=== PATIENT | male | born 1970 | race Caucasian/White ===

== ENCOUNTER 2024-09-03 15:16 | Inpatient (IN) | payer BC ==
[2024-09-03 15:48] LABS: %Basophils 0.9 % (0.0-1.0); %Eosinophils 3.6 % (0.0-10.0); %Lymphocytes 27.9 % (21.0-51.0); %Monocytes 8.4 % (0.0-10.0); %Neutrophils 58.9 % (42.0-75.0); Hematocrit 50.8 % (42.0-52.0); Hemoglobin 18.1 g/dL (14.0-18.0); Mean Corpuscular HGB CONC 35.6 g/dL (32.0-36.0); Mean Corpuscular Hemoglobin 30.1 pg (27.0-31.0); Mean Corpuscular Volume 84.5 fL (78.0-98.0); Mean Platelet Volume 9.6 fL (7.4-10.4); Platelet Count 241 10x3/uL (130-400); RBC Distribution Width 12.6 % (11.5-14.5); Red Blood Cell (RBC) Count 6.01 mill/uL (4.70-6.10)
[2024-09-03 15:59] LABS: ALT (SGPT) 28 U/L (8-55); AST (SGOT) 24 U/L (5-34); Albumin 3.8 g/dL (3.5-5.0); Alkaline Phosphatase 106 U/L (40-110); Anion Gap 14 mmol/L (10-20); BUN (Urea Nitrogen) 12 mg/dL (8.4-25.7); Bilirubin, Total 0.4 mg/dL (0.2-1.2); Calc. Creatinine Clearance 0 mL/min (70-130); Calcium 9.1 mg/dL (7.8-10.44); Carbon Dioxide 25 mmol/L (22-29); Chloride 104 mmol/L (98-107); Estimated GFR 92; Globulin 3.3 g/dL (2.4-3.5); Glucose 95 mg/dL (70-105); Lipase 25 U/L (8-78); Potassium 3.7 mmol/L (3.5-5.1); Protein, Total 7.1 g/dL (6.0-8.3); Sodium 139 mmol/L (136-145)
[2024-09-03 16:11] LABS: Troponin I 0.548 ng/mL (< 0.028)
[2024-09-03] MEDS ORDERED: Aspirin Chewable 81 MG TAB ONE (16:11)
[2024-09-03] MEDS ORDERED: Enoxaparin 80 MG (0.8 mL) SYRINGE ONE (16:33)
[2024-09-03] MEDS ORDERED: Acetaminophen 325 MG TAB PO PRN (17:04)
[2024-09-03] MEDS ORDERED: Senokot S 8.6-50 MG TAB PO PRN (17:04)
[2024-09-03] MEDS ORDERED: Ondansetron ODT 4 MG TAB PO PRN (17:04)
[2024-09-03 17:44] VITALS: BMI 22.5
[2024-09-03 19:00] LABS: Troponin I 0.666 ng/mL (< 0.028)
[2024-09-03] MEDS: Famotidine 20 MG TAB PO SCH (21:06)
[2024-09-03 21:32] LABS: Troponin I 0.923 ng/mL (< 0.028)
[2024-09-04] MEDS: Enoxaparin 80 MG (0.8 mL) SYRINGE SC SCH (04:16)
[2024-09-04 05:15] LABS: #Basophils 0.07 10x3/uL (0.0-0.2); %Basophils 0.7 % (0.0-1.0); %Eosinophils 4.4 % (0.0-10.0); %Lymphocytes 29.5 % (21.0-51.0); %Monocytes 7.6 % (0.0-10.0); %Neutrophils 57.5 % (42.0-75.0); Hematocrit 47.4 % (42.0-52.0); Mean Corpuscular HGB CONC 35.9 g/dL (32.0-36.0); Mean Corpuscular Hemoglobin 30.1 pg (27.0-31.0); Mean Platelet Volume 10.2 fL (7.4-10.4); Platelet Count 212 10x3/uL (130-400); RBC Distribution Width 12.8 % (11.5-14.5); Red Blood Cell (RBC) Count 5.64 mill/uL (4.70-6.10)
[2024-09-04 05:48] LABS: Anion Gap 16 mmol/L (10-20); BUN (Urea Nitrogen) 13 mg/dL (8.4-25.7); Calc. Creatinine Clearance 111 mL/min (70-130); Calcium 8.6 mg/dL (7.8-10.44); Carbon Dioxide 21 mmol/L (22-29); Chloride 108 mmol/L (98-107); Estimated GFR 102; Glucose 90 mg/dL (70-105); Sodium 141 mmol/L (136-145)
[2024-09-04 06:26] LABS: Magnesium 1.9 mg/dL (1.6-2.6)
[2024-09-04] MEDS ORDERED: Communication Order-Pharmacy FS SCH (08:00)
[2024-09-04] MEDS ORDERED: Verapamil 5 MG/2 ML VIAL ONE (13:31)
[2024-09-04] MEDS ORDERED: Heparin 10,000 UNITS/ 10 ML VIAL ONE (13:31)
[2024-09-04] MEDS ORDERED: Adenosine 6 mg (2 mL) VIAL ONE (13:31)
[2024-09-04] MEDS ORDERED: Nitroglycerin 50 MG/250 ML BOT 250 ML ONE (13:31)
[2024-09-04] MEDS ORDERED: fentaNYL 50 mcg/mL 1 mL Vial ONE (14:31)
[2024-09-04] MEDS ORDERED: Midazolam HCl 2 mg/2 ml Vial ONE (14:31)
[2024-09-04] MEDS ORDERED: Atropine Sulfate 1 mg/10 ml Syringe ONE (14:55)
[2024-09-04] MEDS ORDERED: TICAGRELOR 90 MG TABLET ONE (15:31)
[2024-09-04] MEDS: traMADol HCl 50 MG TAB PO PRN (16:20)
[2024-09-04] MEDS: Sodium Chloride 0.9% 1,000 ML IV SCH (16:51)
[2024-09-04] MEDS: TICAGRELOR 90 MG TABLET PO SCH (20:41)
[2024-09-04] MEDS: Atorvastatin Calcium 40 MG TAB PO SCH (20:41)
[2024-09-05 04:46] LABS: #Basophils 0.08 10x3/uL (0.0-0.2); %Basophils 0.7 % (0.0-1.0); %Eosinophils 2.5 % (0.0-10.0); %Lymphocytes 20.5 % (21.0-51.0); %Monocytes 8.5 % (0.0-10.0); %Neutrophils 67.3 % (42.0-75.0); Hematocrit 47.8 % (42.0-52.0); Hemoglobin 17.1 g/dL (14.0-18.0); Mean Corpuscular HGB CONC 35.8 g/dL (32.0-36.0); Mean Corpuscular Hemoglobin 29.8 pg (27.0-31.0); Mean Corpuscular Volume 83.4 fL (78.0-98.0); Platelet Count 200 10x3/uL (130-400); RBC Distribution Width 12.9 % (11.5-14.5); Red Blood Cell (RBC) Count 5.73 mill/uL (4.70-6.10)
[2024-09-05 05:01] LABS: Hemoglobin A1c 5.2 % (4.0-6.0)
[2024-09-05 05:14] LABS: ALT (SGPT) 23 U/L (8-55); AST (SGOT) 27 U/L (5-34); Albumin 3.5 g/dL (3.5-5.0); Alkaline Phosphatase 96 U/L (40-110); Anion Gap 14 mmol/L (10-20); BUN (Urea Nitrogen) 15 mg/dL (8.4-25.7); Bilirubin, Total 1.2 mg/dL (0.2-1.2); Calc. Creatinine Clearance 112 mL/min (70-130); Calcium 8.8 mg/dL (7.8-10.44); Carbon Dioxide 22 mmol/L (22-29); Cardiac Risk 6.6 (Less than 4.5); Chloride 105 mmol/L (98-107); Cholesterol 164 mg/dl (< 200 Desired); Estimated GFR 103; Globulin 3.3 g/dL (2.4-3.5); Glucose 78 mg/dL (70-105); HDL Cholesterol 25 mg/dL (>60 Neg Risk); LDL Cholesterol, Calculated 113 mg/dL; Potassium 3.6 mmol/L (3.5-5.1); Protein, Total 6.8 g/dL (6.0-8.3); Sodium 137 mmol/L (136-145); Triglycerides 128 mg/dL (Less than 150)
[2024-09-05] MEDS: Aspirin 81 mg Enteric Coated Tablet PO SCH (08:08)
[2024-09-05 12:26] VITALS: BP 118/69; TEMP 98.5
== END 2024-09-05 12:15 | disposition home or self-care (01) | DRG 322 ==
LOC: ERS 15:16 → OBSVTOIN 16:30 → 2NO 16:30
PROVIDERS: ADMIT Student in an Organized Health Care Education/Training Program; ATTEND Family Medicine
PROC: 4A023N7 Measurement of Cardiac Sampling and Pressure, Left Heart, Percutaneous Approach (ICD-10-PCS; principal; 2024-09-04)
PROC: 027034Z Dilation of Coronary Artery, One Artery with Drug-eluting Intraluminal Device, Percutaneous Approach (ICD-10-PCS; 2024-09-04)
PROC: B2151ZZ Fluoroscopy of Left Heart using Low Osmolar Contrast (ICD-10-PCS; 2024-09-04)
PROC: B2111ZZ Fluoroscopy of Multiple Coronary Arteries using Low Osmolar Contrast (ICD-10-PCS; 2024-09-04)
PROC: B240ZZ3 Ultrasonography of Single Coronary Artery, Intravascular (ICD-10-PCS; 2024-09-04)
DX: I21.4 Non-ST elevation (NSTEMI) myocardial infarction (principal); I47.20 Ventricular tachycardia, unspecified; I25.110 Atherosclerotic heart disease of native coronary artery with unstable angina pectoris; K21.9 Gastro-esophageal reflux disease without esophagitis; F17.210 Nicotine dependence, cigarettes, uncomplicated; Z79.899 Other long term (current) drug therapy; Z79.82 Long term (current) use of aspirin
CPT/HCPCS: 36415; 71045; 80048; 80053; 80061; 83036; 83690; 83735; 84484; 85025; 85347; 92928; 92978; 93005; 93010; 93306; 93458; 94760; 99152; 99153; C1725; C1753; C1769; C1874; C1887; C1894; C9600; J0153; J0461; J1644; J1650; J2250; J3010; J7030